=== PATIENT | female | born 1980 | race Hispanic/Latino ===

== ENCOUNTER 2022-10-13 05:52 | Day surgery (SDC) | payer OTHER ==
[~2022-10-13] VITALS: Ht 162.6 cm; Wt 117.0 kg
[2022-10-13] VITALS (11 sets, daily range): BP systolic 96–120; BP diastolic 59–78
[~2022-10-13 05:52] MED LIST: OMEP40CA21 PO
[2022-10-13] MEDS ORDERED: LIDOCAINE PF 100MG/5ML (2%) SYRINGE 5ML ONE (06:27)
[2022-10-13] MEDS ORDERED: PROPOFOL 10 MG/ML 20ML VIAL IV ONE (07:26)
[2022-10-13] MEDS ORDERED: 0.9%NACL 1000ML 1,000 ML IV ONE (13:19)
== END 2022-10-13 08:45 | disposition home or self-care (01) ==
LOC: SUH 05:52 → DAH 05:52 → SUH 08:45
PROVIDERS: ATTEND Internal Medicine Gastroenterology
DX: R10.13 Epigastric pain (principal); Z20.822 Contact with and (suspected) exposure to COVID-19; K21.9 Gastro-esophageal reflux disease without esophagitis; K31.89 Other diseases of stomach and duodenum; K22.89 Other specified disease of esophagus; Z98.890 Other specified postprocedural states; Z98.1 Arthrodesis status; Z79.899 Other long term (current) drug therapy
CPT/HCPCS: 87426; 43239; 81025; J7030 ×2; J2001; J2704; A4620; A4215 ×2; A4223; A4222; A4663; A4606; A4221

== ENCOUNTER 2024-11-03 07:45 | Day surgery (SDC) | payer OTHER ==
[2024-11-03] VITALS (10 sets, daily range): BP systolic 100–118; BP diastolic 55–73; PULSE 65–75; RESP 15–18; TEMP 97.5–97.9
[~2024-11-03] VITALS: Ht 162.6 cm; Wt 95.3 kg
[~2024-11-03 07:45] MED LIST changes: +[UNRECOGNIZED DRUG - CODE] SQ
[2024-11-03] MEDS: 0.9%NACL 1000ML 1,000 ML IV ONE (10:05)
[2024-11-03] MEDS ORDERED: proPOFol 10 MG/ML 20ML VIAL IV ONE (11:05)
--- NOTE | 2024-11-03 12:39 | NUR ---
Full and complete discharge instructions given to Patient and Family both verbally and in writing. Explained GI procedure precautions and follow up. All questions answered. PIV removed with catheter tip intact. Home with Family W/C to POV.
== END 2024-11-03 12:39 | disposition home or self-care (01) ==
LOC: ENDO 07:45 → DAH 07:45 → ENDO 12:39
PROVIDERS: ATTEND Internal Medicine Gastroenterology
DX: K59.04 Chronic idiopathic constipation (principal); K63.5 Polyp of colon; E11.9 Type 2 diabetes mellitus without complications; R93.429 Abnormal radiologic findings on diagnostic imaging of unspecified kidney; R93.2 Abnormal findings on diagnostic imaging of liver and biliary tract; K21.9 Gastro-esophageal reflux disease without esophagitis; Z88.8 Allergy status to other drugs, medicaments and biological substances; K29.50 Unspecified chronic gastritis without bleeding; Z79.899 Other long term (current) drug therapy
CPT/HCPCS: 82948 ×2; 81025; 45380; J7030 ×2; J2704; A4620; A4215; A4223; A7002; A4222; A4221; A4663; A4606; J3490